=== PATIENT | male | born 1975 | race Caucasian/White ===

== ENCOUNTER 2016-10-27 13:46 | Emergency (ER) | payer MEDICARE, OTHER | END 2016-10-27 16:25 | disposition home or self-care (01) | LOC: ER 13:46 | DX: B00.89 Other herpesviral infection (principal); E11.9 Type 2 diabetes mellitus without complications; J44.9 Chronic obstructive pulmonary disease, unspecified; F17.210 Nicotine dependence, cigarettes, uncomplicated; Z79.899 Other long term (current) drug therapy | CPT/HCPCS: 96372; 99282-25; 99283 ==

== ENCOUNTER 2016-11-02 01:47 | Emergency (ER) | payer MEDICARE, OTHER | END 2016-11-02 03:40 | disposition home or self-care (01) | LOC: ER 01:47 | DX: T78.40XA Allergy, unspecified, initial encounter (principal); I10 Essential (primary) hypertension; E11.9 Type 2 diabetes mellitus without complications; J44.9 Chronic obstructive pulmonary disease, unspecified; F17.210 Nicotine dependence, cigarettes, uncomplicated; Z98.890 Other specified postprocedural states; Z79.84 Long term (current) use of oral hypoglycemic drugs; Z79.899 Other long term (current) drug therapy | CPT/HCPCS: 96374; 96375; 99070; 99282-25; 99283; J2930 ==

== ENCOUNTER 2016-11-04 16:49 | Emergency (ER) | payer MEDICARE, OTHER | END 2016-11-04 18:33 | LOC: ER 16:49 | DX: L27.0 Generalized skin eruption due to drugs and medicaments taken internally (principal); T50.905A Adverse effect of unspecified drugs, medicaments and biological substances, initial encounter; F17.210 Nicotine dependence, cigarettes, uncomplicated; Z79.899 Other long term (current) drug therapy | CPT/HCPCS: 96372; 99282-25; 99283 ==

== ENCOUNTER 2016-11-29 18:03 | Emergency (ER) | payer MEDICARE, OTHER | END 2016-11-29 19:42 | disposition home or self-care (01) | LOC: ER 18:03 | DX: T78.40XA Allergy, unspecified, initial encounter (principal); R21 Rash and other nonspecific skin eruption; E11.9 Type 2 diabetes mellitus without complications; J44.9 Chronic obstructive pulmonary disease, unspecified; I10 Essential (primary) hypertension; Z98.890 Other specified postprocedural states; F17.210 Nicotine dependence, cigarettes, uncomplicated; Z79.84 Long term (current) use of oral hypoglycemic drugs; Z79.899 Other long term (current) drug therapy | CPT/HCPCS: 96374; 96375; 99070; 99282-25; 99283; J2920 ==